=== PATIENT | male | born 1950 | race Caucasian/White ===

== ENCOUNTER 2021-04-13 12:39 | Emergency (ER) | payer BC, OTHER ==
[2021-04-13 12:47] VITALS: BP 184/90; PULSE 99; TEMP 97.5; BMI 25.8
[2021-04-13] MEDS ORDERED: ACETAMINOPHEN 325 MG TABLET (FP) PO ONE (13:17)
== END 2021-04-13 16:34 | disposition home or self-care (01) ==
LOC: JERFT 12:39
DX: S22.43XA Multiple fractures of ribs, bilateral, initial encounter for closed fracture (principal); W10.8XXA Fall (on) (from) other stairs and steps, initial encounter
CPT/HCPCS: 70450-TC; 71046-TC-FY; 71111-TC-FY; 99284-25